=== PATIENT | male | born 1950 | race Caucasian/White ===

== ENCOUNTER 2017-06-19 08:07 | Day surgery (SDC) | payer OTHER ==
--- NOTE | 2017-06-11 20:52 | HP ---
PREOPERATIVE HISTORY AND PHYSICAL: DATE OF ADMISSION/SURGERY: 06/19/17 ATTENDING SURGEON: Maria Del Carmen Heller MD * (DICTATED BY GENESIS WALLACE) PROCEDURE: Right shoulder arthroscopic excision of distal clavicle, decompression, and debridement and possible rotator cuff repair. CHIEF COMPLAINT: Right shoulder pain. HISTORY OF PRESENT ILLNESS: Florencio is a 66-year-old male, who presented to the clinic for right shoulder pain due to a work-related injury. He has had several surgeries on the right shoulder. He has failed conservative measures to include an injection and has therefore, agreed to undergo a right shoulder arthroscopic excision of distal clavicle, decompression, debridement, and possible rotator cuff repair with Dr. Heller on 06/19/17. PAST MEDICAL HISTORY: Hypertension. PAST SURGICAL HISTORY: 1. Left and right knee surgery. 2. Right shoulder x3. 3. Toe surgery. 4. Hernia repair. The patient denies prior complications with anesthesia. MEDICATIONS: 1. Flexeril 10 mg one by mouth 3 times a day as needed for spasms. 2. Cyclobenzaprine 5 mg one by mouth at night as needed for spasms. 3. Ibuprofen 800 mg one by mouth 3 times a day as needed. 4. Aspirin 81 mg one by mouth daily. 5. Lisinopril 5 mg one by mouth daily. 6. Hydrochlorothiazide 25 mg one by mouth daily. 7. Amlodipine besylate 5 mg one by mouth daily. ALLERGIES: No known drug allergies. FAMILY HISTORY: Positive for cancer. SOCIAL HISTORY: He is right hand dominant. He smokes half a pack per day. He reports occasional alcohol consumption. REVIEW OF SYSTEMS: A 14-point review of systems was reviewed with the patient. Positive for current complaint, otherwise negative. Denies chest pain, shortness of breath. Denies fevers, chills. Denies history of bleeding disorders. Denies history of DVT or PE. PHYSICAL EXAMINATION GENERAL: Well-developed, well-nourished 66-year-old male, in no acute distress. Alert and oriented x3. Appropriate mood and affect. VITALS: Height 74, weight 236. Pulse 80, blood pressure 137/81, temperature 95.9. BMI 30.3. HEENT: Normocephalic and atraumatic. PERRLA. Throat clear. NECK: Supple. PULMONARY: Lungs are clear to auscultation bilaterally. No wheezing, rhonchi, or rales. CARDIO: Regular rate and rhythm. S1 and S2. No murmurs, gallops, rubs. No edema. ABDOMEN: Positive bowel sounds. Soft and nontender. NEURO: Alert and oriented x3. Cranial nerves grossly intact. Sensation is intact to light touch. MUSCULOSKELETAL: Right upper extremity: Tenderness to palpation over the AC joint. The skin is intact. No warmth or erythema. Forward flexion 150, external rotation to 65, internal rotation to T10, abduction 150. +4/5 strength to supraspinatus testing with pain. +4/5 strength to belly press and bear hug. Positive Neer, Speed's, Yanes-Alton, Loxley's. +2 radial pulse. Sensation is intact to light touch distally. STUDIES: MRI of the right shoulder reveals a prior AC joint resection that may not be completely adequate superiorly with a partial thickness tear of the rotator cuff tear and mild cartilage wear. IMPRESSION: Right shoulder AC joint arthritis and rotator cuff tear. PLAN: The patient is scheduled to undergo a right shoulder arthroscopic excision of distal clavicle, decompression, debridement, and possible rotator cuff repair with Dr. Heller on 06/19/17. He will return to the office 10 to 14 days postoperative followup and suture removal. Percocet was sent to his pharmacy for postop pain management and Keflex was sent for antibiotic prophylaxis. GENESIS WALLACE [id number]/[facility] #: [id number] [place]
[~2017-06-19 08:07] MED LIST: Buffered Lidocaine 0.9% SYRIN* 5 ML/SYR SYRINGE INTRADERM ONE; Famotidine IV* 10 MG/ML 2 ML (20 mg) IV ONE
[2017-06-19] MEDS ORDERED: Buffered Lidocaine 0.9% SYRIN* 5 ML/SYR SYRINGE ONE (08:12)
[2017-06-19] MEDS ORDERED: ceFAZolin 2 GM PREMIX (*) 50 ML IVPB ONE (08:12)
[2017-06-19] MEDS ORDERED: Famotidine IV* 10 MG/ML 2 ML (20 mg) ONE (08:12)
[2017-06-19] MEDS ORDERED: fentaNYL* 50 MCG/ML 2 ML VIAL (100 MCG VIAL) ONE ×2 (09:19→11:14)
[2017-06-19] MEDS ORDERED: Midazolam* 1 MG/ML 5 ML VIAL (5 MG) ONE (09:19)
[2017-06-19] MEDS ORDERED: KETAMINE HCL* 50 MG/ML 10 ML VIAL ONE (11:29)
[2017-06-19] MEDS ORDERED: DiMENhydriNATE IV* 50 MG/ML VIAL IV PUSH PRN (11:35)
[2017-06-19] MEDS ORDERED: HYDROmorphone INJ* 1 MG/ML CARPUJECT SYRINGE IV PRN (11:35)
[2017-06-19] MEDS ORDERED: HYDROcodone/ACETAMIN 5-325 MG* 1 TAB PO PRN (11:35)
[2017-06-19] MEDS ORDERED: Ondansetron INJ* 2 MG/ML VIAL ONE (11:42)
[2017-06-19] MEDS ORDERED: Lidocaine 2% PF * 5 ML VIAL ONE (11:42)
[2017-06-19] MEDS ORDERED: Ketorolac INJ* 30 MG/ML 1 ML VIAL ONE (11:42)
[2017-06-19] MEDS ORDERED: Propofol* 10 MG/ML 20 ML BTL IV PUSH ONE (11:42)
[2017-06-19] MEDS ORDERED: Dexamethasone IV* 4 MG/ML 1 ML (4 MG) ONE (11:42)
[2017-06-19] MEDS ORDERED: ROPIVACAINE 5 MG/ML 30 ML BTL (0.5%) ONE (11:42)
[2017-06-19 13:48] VITALS: BP 144/72
--- NOTE | 2017-07-09 15:03 | OP ---
DATE OF OPERATION: 06/19/17 [facility] DATE OF : 54 SURGEON: Maria Del Carmen Heller MD [employer] ATTENDANT: GENESIS Singh PRE-OP DIAGNOSES: Right shoulder impingement, acromioclavicular joint arthritis , possible rotator cuff tear. POST-OP DIAGNOSIS: OPERATIVE PROCEDURE: 1. Right shoulder extensive glenohumeral debridement including chondroplasty, lysis of adhesions. 2. Revision subacromial decompression with removal of retained foreign body x1 and revision distal clavicle excision. INDICATIONS: Florencio Hayes is a 66-year-old gentleman who had a work- related injury in 2008. He has had several surgeries previously, he has had persistent pain. We had tried conservative treatment. He has failed conservative treatment and has elected to proceed with surgical treatment. I did discuss that he may have a partially repaired rotator cuff, which may need to be repaired versus abundant scars from his previous open surgery. We talked about re-examining his subacromial space as well as his AC joint where he does still continue to have pain there. He also had a previous biceps tenodesis with pain along the bicipital groove at previous injection. Risks and benefits were discussed at length that included, but are not limited to, bleeding, infection, damage to nerves, vessels, surrounding structures, wound nonhealing, persistent pain, need for further surgery, scarring, stiffness, incomplete relief of symptoms, risk of anesthesia, risk of DVT. He has elected to proceed with surgery. DESCRIPTION OF PROCEDURE: The patient was greeted in the preoperative area by the attending surgeon. The correct extremity was marked. Consent was confirmed. He underwent interscalene nerve block by the anesthesiologist in the preoperative area. The patient was brought back to the operating suite where he was placed in supine position on the operating table. He then underwent general anesthesia endotracheal intubation after which he was placed in the left lateral decubitus position with all bony prominences padded with an axillary roll. The right shoulder was draped unsterile with 10 pounds of traction. The right shoulder was prepped and draped in the usual sterile fashion beginning with chlorhexidine soap, scrub, and alcohol wipe. After appropriate surgical pause indicating site, side, procedure, and administration of antibiotics, a standard postero-lateral portal was made sharply with 11 blade. The scope was introduced into the joint and the joint was examined. There was abundant synovitis anteriorly. The humeral head had grade 0 to 1 changes. The glenoid had areas of grade 2 changes with unstable flaps. The anterior, posterior, and superior labrum had unstable fraying and was debrided back. The biceps was identified. The stump was scarred at the capsule anteriorly. There was abundant capsule anteriorly. Very difficult to get through the anterior portal. The anterior portal was placed. The shaver was used to debride back the unstable labrum and to debride the undersurface of the subscapularis, which had mild amount of fraying. The electro-cautery device was used to remove the scar about the interval and released where the biceps had previously scarred to the interval. The undersurface of the rotator cuff had mild partial tearing. This was tagged for identification in the subacromial space. Once the debridement and lysis of adhesions of the interval were removed, attention was directed to the subacromial space. The scope was positioned in the subacromial space. Lateral portal was made in an outside-in fashion. The shaver was brought into the joint to remove the bursa. There was mild amount of bursa. There was small irregular spur anterolaterally. There was remnant from the open decompression. There were sutures, which were Ethibond sutures that were present in the joint with abundant scar anteriorly along the area of the patient's pain. This was carefully removed using the shaver and electrocautery device with care not to remove the deltoid or release the deltoid from its insertion. Some of the Ethibond sutures were then removed using a grasper. The undersurface of the acromion was skeletonized using the electrocautery device and a 4.0 oval bur was used to do revision decompression. Attention was directed to the AC joint, which was identified. Previous resection had been done with a small spur anteromedially. This was then removed using a 4.0 oval bur. Again, the abundant scar anteriorly was carefully released using electrocautery device. Final images were obtained. All fluid and debris were removed from the joint and the wounds were copiously irrigated with sterile saline. The portals were closed with 3-0 nylon. Sterile dressings were applied. He was awoken from anesthesia and transferred to PACU in stable condition. POSTOPERATIVE PLAN: He will be nonweightbearing. He will be allowed range of motion as tolerated. We will start physical therapy in the first 2 weeks. I will see the patient back in 10 to 14 days. [id number]/[facility] #: [id number] MTDD
== END 2017-06-19 13:48 | disposition home or self-care (01) ==
LOC: OR 08:07
PROVIDERS: ATTEND Orthopaedic Surgery
DX: M25.811 Other specified joint disorders, right shoulder (principal); M19.011 Primary osteoarthritis, right shoulder; G89.18 Other acute postprocedural pain; M75.01 Adhesive capsulitis of right shoulder; M75.111 Incomplete rotator cuff tear or rupture of right shoulder, not specified as traumatic; Z79.82 Long term (current) use of aspirin; F17.210 Nicotine dependence, cigarettes, uncomplicated; I10 Essential (primary) hypertension
CPT/HCPCS: J0690; J1100; J1885; J2250; J2405; J2704; J2795; J3010